=== PATIENT | female | born 2000 | race American Indian/Alaskan Native ===

== ENCOUNTER 2020-01-07 01:26 | Outpatient (CLI) | payer MEDICAID ==
[2020-01-07 01:48] VITALS: BP 132/62
== END 2020-01-07 02:32 | disposition home or self-care (01) ==
LOC: TRG 01:26 → APU 01:32 → TRG 02:32
PROVIDERS: ATTEND Obstetrics & Gynecology
DX: O47.03 False labor before 37 completed weeks of gestation, third trimester (principal); Z3A.36 36 weeks gestation of pregnancy
CPT/HCPCS: 59025

== ENCOUNTER 2020-01-13 19:48 | Outpatient (CLI) | payer MEDICAID ==
[2020-01-13 20:04] VITALS: BP 122/65
== END 2020-01-13 21:17 | disposition home or self-care (01) ==
LOC: TRG 19:48 → APU 19:50 → TRG 21:17
PROVIDERS: ATTEND Obstetrics & Gynecology
DX: O47.03 False labor before 37 completed weeks of gestation, third trimester (principal); Z3A.36 36 weeks gestation of pregnancy
CPT/HCPCS: 59025

== ENCOUNTER 2020-01-24 15:00 | Outpatient (CLI) | payer MEDICAID ==
[2020-01-24] MEDS ORDERED: LACTATED RINGERS 1,000 ML IV SCH (18:00)
[2020-01-24 19:35] VITALS: BP 125/72
== END 2020-01-24 21:18 | disposition home or self-care (01) ==
LOC: APU 15:00 → TRG 15:00
PROVIDERS: ATTEND Obstetrics & Gynecology
DX: O62.9 Abnormality of forces of labor, unspecified (principal); Z3A.38 38 weeks gestation of pregnancy
CPT/HCPCS: 59025; 96360; 96361; J7120

== ENCOUNTER 2020-01-26 02:54 | Outpatient (CLI) | payer MEDICAID ==
[2020-01-26 03:48] VITALS: BP 134/78
== END 2020-01-26 04:02 | disposition home or self-care (01) ==
LOC: TRG 02:54 → APU 03:03 → TRG 04:02
PROVIDERS: ATTEND Obstetrics & Gynecology
DX: Z34.83 Encounter for supervision of other normal pregnancy, third trimester (principal); Z3A.38 38 weeks gestation of pregnancy
CPT/HCPCS: 59025

== ENCOUNTER 2020-01-28 22:48 | Outpatient (CLI) | payer MEDICAID ==
[2020-01-28 23:02] VITALS: BP 139/68
== END 2020-01-28 23:24 | disposition home or self-care (01) ==
LOC: TRG 22:48 → APU 22:55 → TRG 23:24
PROVIDERS: ATTEND Obstetrics & Gynecology
DX: Z34.83 Encounter for supervision of other normal pregnancy, third trimester (principal); Z3A.39 39 weeks gestation of pregnancy
CPT/HCPCS: 59025

== ENCOUNTER 2020-01-30 10:09 | Inpatient (IN) | payer MEDICAID ==
[2020-01-30] MEDS ORDERED: LIDOCAINE (2%) 20 MG/1 ML VIAL 20 ML MDV INFILTRATI NR (10:27)
[2020-01-30] MEDS ORDERED: ePHEDrine SULFATE 50 MG/1 ML INJ IV PRN ×2 (10:27→14:00)
[2020-01-30] MEDS ORDERED: TERBUTALINE 1 MG/1 ML INJ SUB-Q PRN (10:27)
[2020-01-30] MEDS ORDERED: fentaNYL 100 MCG/2 ML INJ IV PRN (11:00)
[2020-01-30] MEDS ORDERED: ONDANSETRON 4 MG/2 ML INJ IV PRN (11:00)
[2020-01-30] MEDS ORDERED: OXYTOCIN DRIP 30 UNITS/500 ML BAG IV SCH ×2 (11:00)
[2020-01-30] MEDS ORDERED: BUTORPHANOL 2 MG/1 ML INJ IV PRN (11:00)
[2020-01-30] MEDS: LACTATED RINGERS 1,000 ML IV SCH ×3 (11:10→17:29)
[2020-01-30 11:18] LABS: Hematocrit 26.4 % (30.3-42.9); Hemoglobin 8.5 gm/dl (10.1-14.3); Mean Corpuscular HGB Conc 32 % (30-34); Mean Corpuscular Volume 73 fl (79-97); Platelet Count 192 K/mm3 (140-440); Red Blood Count 3.64 M/mm3 (3.65-5.03); Red Cell Distribution Width 19.5 % (13.2-15.2)
--- NOTE | 2020-01-30 13:59 | History and Physical Report ---
History of Present Illness Date of examination: 01/30/20 Date of admission: 01/30/20 10:29 Chief complaint: I am having contractions History of present illness: Ms. Lakhani is a 19-year-old 1 para 0 with EDC 02/04/20. She has had an uncomplicated course. She is GBS positive. She entered care and a pressure monitor. Past History Past Medical History: no pertinent history Past Surgical History: no surgical history Family/Genetic History: none Social history: single - Obstetrical History Expected Date of Delivery: 02/04/20 Actual Gestation: 39 Week(s) 2 Day(s) : 1 Para: 0 Number of Living Children: 0 Medications and Allergies Allergies Allergy/AdvReac Type Severity Reaction Status Date / Time No Known Allergies Allergy Verified 01/24/20 15:14 Active Meds: Active Medications Butorphanol Tartrate (Stadol) 2 mg IV Q2H PRN PRN Reason: Pain , Severe (7-10) Ephedrine Sulfate (Ephedrine Sulfate) 10 mg IV Q2M PRN PRN Reason: Hypotension Fentanyl (Sublimaze) 100 mcg IV Q2H PRN PRN Reason: Pain,Severe (7-10) LABOR PAIN Last Admin: 01/30/20 11:25 Dose: 100 mcg Documented by: Oxytocin/Sodium Chloride (Pitocin/Ns 30 Unit/500ml) 30 units in 500 mls @ 2 mls/hr IV TITR LUSI ANGEL; Protocol Last Titration: 01/30/20 12:50 Dose: 4 mls/hr, 4 mls/hr Documented by: Lactated Ringer's (Lactated Ringers) 1,000 mls @ 125 mls/hr IV DIRECT LUIS ANGEL Last Admin: 01/30/20 13:02 Dose: 1,200 mls/hr Documented by: Mineral Oil (Mineral Oil) 30 ml PO QHS PRN PRN Reason: Constipation Ondansetron HCl (Zofran) 4 mg IV Q4H PRN PRN Reason: Nausea And Vomiting Last Admin: 01/30/20 11:11 Dose: 4 mg Documented by: Terbutaline Sulfate (Brethine) 0.25 mg SUB-Q ONCE PRN PRN Reason: Hyperstimulation/Hypertonicity Review of Systems All systems: negative Genitourinary: contractions Rectal Exam: deferred - Vital Signs Vital signs: Vital Signs Pulse BP Pulse Ox 94 H 134/90 100 01/30/20 10:16 01/30/20 10:16 01/30/20 10:16 Temp Pulse Resp BP Pulse Ox 98.1 F 89 20 145/93 98 01/30/20 11:40 01/30/20 13:37 01/30/20 11:40 01/30/20 13:18 01/30/20 13:37 - Physical Exam Breasts: Cardiovascular: Regular rate, Normal S1, Normal S2 Lungs: Positive: Clear to auscultation, Normal air movement Abdomen: Positive: normal appearance, soft, normal bowel sounds. Negative: distention, tenderness Genitourinary (Female): Positive: normal external genitalia, normal perenium Vulva: both: normal Vagina: Positive: normal moisture. Negative: discharge Cervix: Negative: lesion, discharge Uterus: Positive: normal size, normal contour Adnexa: both: normal Anus/Rectum: Positive: normal perianal skin, heme negative. Negative: rectal mass, hemorrhoids Extremities: Deep Tendon Reflex Grade: Normal +2 - Obstetrical Cervical Dilatation: 4 Cervical Effacement Percentage: 100 station: 1 Uterine Contraction Pattern: Irregular Uterine Tone Measurement Phase: Resting Uterine Contraction Intensity: Moderate Results Result Diagrams: 01/30/20 10:50 Abnormal lab results 01/30/20 Range/Units 10:50 RBC 3.64 L (3.65-5.03) M/mm3 Hgb 8.5 L (10.1-14.3) gm/dl Hct 26.4 L (30.3-42.9) % MCV 73 L (79-97) fl MCH 24 L (28-32) pg RDW 19.5 H (13.2-15.2) % All other labs normal. Assessment and Plan IUP at 39.3 week in active labor. Admit for labor. Treat for GBS positive status. Anticipate
[2020-01-30] MEDS ORDERED: NALOXONE 2 MG/2 ML INJ IV PRN (14:00)
[2020-01-30] MEDS ORDERED: AMPICILLIN/NS 2 GM/100 ML 2 GM/100 ML BAG IV SCH (14:00)
[2020-01-30] MEDS ORDERED: fentaNYL-BUPIV 2 MCG/ML-0.125% 200 MCG/100 ML BAG EPIDURAL SCH (14:00)
--- NOTE | 2020-01-30 14:42 | Anesthesia Consultation ---
Anesthesia Consult and Med Hx Date of service: 01/30/20 - Airway Anesthetic Teeth Evaluation: Good ROM Head & Neck: Adequate Mental/Hyoid Distance: Adequate Mallampati Class: Class II Intubation Access Assessment: Good - Pulmonary Exam CTA: Yes - Cardiac Exam Cardiac Exam: RRR - Pre-Operative Health Status ASA Pre-Surgery Classification: ASA2 Proposed Anesthetic Plan: Epidural - Pre-Anesthesia Comment Pre-Anesthesia Comments: excision of cyst - Pulmonary Hx Smoking: No Hx Asthma: No Hx Respiratory Symptoms: No SOB: No COPD: No Home Oxygen Therapy: No Hx Pneumonia: No Hx Sleep Apnea: No - Cardiovascular System Hx Hypertension: No Hx Coronary Artery Disease: No Hx Heart Attack/AMI: No Hx Angina: No Hx Percutaneous Transluminal Coronary Angioplasty (PTCA): No Hx Cardia Arrhythmia: No Hx Pacemaker: No Hx Internal Defibrillator: No Hx Valvular Heart Disease: No Hx Heart Murmur: No Hx Peripheral Vascular Disease: No - Central Nervous System Hx Neuromuscular Disorder: No Hx Seizures: No CVA: No Hx Back Pain: Yes Hx Psychiatric Problems: No - Gastrointestinal Hx Ulcer: No Hx Gastroesophageal Reflux Disease: No - Endocrine Hx Renal Disease: No Hx End Stage Renal Disease: No Hx Cirrhosis: No Hx Liver Disease: No Hx Insulin Dependent Diabetes: No Hx Non-Insulin Dependent Diabetes: No Hx Thyroid Disease: No Hx Hypothyroidism: No Hx Hyperthyroidism: No - Hematic Hx Anemia: No Hx Sickle Cell Disease: No - Other Systems Hx Alcohol Use: No Hx Substance Use: No Hx Cancer: No Hx Obesity: No
--- NOTE | 2020-01-30 14:43 | Progress Note ---
Labor Epidural - Labor Epidural Start Time: 14:05 Stop Time: 14:17 Performed by:: VICKY MENESES Procedure: Patient is requesting combined spinal epidural for labor and pain. H&P, labs were reviewed. All questions and concerns were answered. Informed consent was obtained. Timeout performed. Patient in sitting position on side of bed. Sterile prep and drape was performed. 3 mL 1% lidocaine skin wheal at L [3]-L [4]. 18-gauge Tuohy epidural needle advanced to [id number] using air technique 6cm. 27-gauge spinal needle advanced, positive free-flowing CSF. Spinal dose of [precedex 5mcg]. Epidural catheter advanced to [10] cm. [negative] Aspiration, [negative] test dose. Sterile dressing applied. Patient tolerated procedure well.
[2020-01-30] MEDS ORDERED: AMPICILLIN/NS 1 GM/50 ML 1 GM/50 ML BAG IV SCH (18:00)
[2020-01-30] MEDS ORDERED: MINERAL OIL 30 ML ORAL LIQD PO PRN (22:00)
[2020-01-30] MEDS ORDERED: OXYTOCIN 10 UNIT/1 ML INJ ONE (22:25)
--- NOTE | 2020-01-30 22:39 | Procedure Note ---
OB Delivery Note - Delivery Date of Delivery: 01/30/20 Surgeon: PRISCILLA NICOLE Estimated blood loss: 300cc - Vaginal Delivery presentation: vertex Delivery position: OA Intrapartum events: none Delivery augmentation: rupture of membranes, pitocin Delivery monitor: external FHT, external uterine Route of delivery: Delivery placenta: spontaneous Delivery cord: 3 umbilical vessels Episiotomy: none Delivery laceration: none Anesthesia: epidural Delivery comments: Viable female delivered over intact perineum at 2215 weight 6 pounds 7 ounces, 2931 g. Apgars 8 and 9. Events continuous cry was placed maternal abdomen. Cord was clamped and cut when done pulsating. Placenta was delivered spontaneously and intact with three-vessel cord. No lacerations were noted. Good hemostasis. Patient tolerated procedure well. - Infant A at 1 minute: 8 at 5 minutes: 9 Infant Gender: Female
[2020-01-31] MEDS ORDERED: LANOLIN/ZINC/DIMETHICONE (LANSINOH) 7 GM TP PRN (02:02)
[2020-01-31] MEDS ORDERED: HYDROcodone/ACETAMINOPHEN 5-325 MG TAB PO PRN (02:02)
[2020-01-31] MEDS ORDERED: PROMETHAZINE 25 MG TAB PO PRN (02:02)
[2020-01-31] MEDS ORDERED: WITCH HAZEL/ GLYCERIN PAD TP PRN (02:02)
[2020-01-31] MEDS ORDERED: MAGNESIUM HYDROXIDE (MOM) ORAL LIQD UDC PO PRN (02:02)
[2020-01-31] MEDS ORDERED: ACETAMINOPHEN 325 MG TAB PO PRN (02:02)
[2020-01-31] MEDS ORDERED: diphenhydrAMINE 25 MG CAP PO PRN (02:02)
[2020-01-31] MEDS ORDERED: ONDANSETRON 4 MG/2 ML INJ IV PRN (02:02)
[2020-01-31] MEDS ORDERED: PROMETHAZINE 25 MG RECT SUPP PR PRN (02:02)
[2020-01-31] MEDS: IBUPROFEN 600 MG TAB PO SCH ×3 (05:07→17:35)
--- NOTE | 2020-01-31 05:42 | Post Anesthesia Evaluation ---
- Post Anesthesia Evaluation Patient Participated: Yes Airway Patent: Yes Stable Respiratory Function: Yes Nausea/Vomiting: No Temp > 96.8F: Yes Pain Manageable: Yes Adequeate Hydration: Yes Anesthesia Complications: No Block Receding Appropriately: Yes Patient on Ventilator: No
[2020-01-31] MEDS: DOCUSATE SODIUM 100 MG CAP PO SCH ×2 (09:23→21:48)
[2020-01-31] MEDS: PRENATAL VIT27-FE FUMARATE-FOLIC ACID VIT TAB PO SCH (09:23)
--- NOTE | 2020-01-31 11:16 | Progress Note ---
Assessment and Plan - Patient Problems (1) Vaginal delivery Current Visit: Yes Status: Acute Plan to address problem: Patient doing well Routine care Subjective - Subjective Date of service: 01/31/20 Interval history: Patient currently without complaints. She reports that her lochia is decreasing and her pain is controlled Patient reports: appetite normal, voiding normally, pain well controlled : doing well Objective - Vital Signs Latest vital signs: Vital Signs Temp Pulse Resp BP BP Pulse Ox 01/31/20 08:20 98.4 F 85 18 125/80 100 01/31/20 04:15 98.6 F 69 18 115/79 01/30/20 23:42 90 147/88 01/30/20 23:36 82 100 01/30/20 23:31 95 H 99 01/30/20 23:26 98 H 100 01/30/20 23:21 92 H 99 01/30/20 23:16 98 H 99 01/30/20 23:15 98.9 F 01/30/20 23:13 100 H 99 01/30/20 23:08 104 H 100 01/30/20 23:03 91 H 100 01/30/20 22:58 101 H 99 01/30/20 22:53 100 H 100 01/30/20 22:48 98 H 100 01/30/20 22:43 101 H 100 01/30/20 22:38 108 H 100 01/30/20 22:33 106 H 99 01/30/20 22:28 107 H 100 01/30/20 22:23 106 H 99 01/30/20 22:22 110 H 143/84 01/30/20 22:18 115 H 100 01/30/20 22:13 110 H 99 01/30/20 22:08 106 H 100 01/30/20 22:02 108 H 100 01/30/20 21:57 109 H 99 01/30/20 21:52 112 H 100 01/30/20 21:47 107 H 100 01/30/20 21:45 99.4 F 01/30/20 21:44 116 H 92 01/30/20 21:42 105 H 100 01/30/20 21:37 114 H 100 01/30/20 21:32 114 H 99 01/30/20 21:27 115 H 99 01/30/20 21:23 116 H 130/87 11/25/20 21:22 118 H 100 11/25/20 21:17 111 H 100 11/25/20 21:12 113 H 100 11/25/20 21:07 113 H 99 11/25/20 21:02 113 H 100 11/25/20 20:57 114 H 100 11/25/20 20:52 113 H 99 11/25/20 20:47 115 H 99 11/25/20 20:42 111 H 100 11/25/20 20:37 112 H 99 11/25/20 20:32 114 H 99 11/25/20 20:27 109 H 100 11/25/20 20:22 101 H 129/80 99 11/25/20 20:17 114 H 100 11/25/20 20:12 112 H 100 11/25/20 20:07 114 H 100 11/25/20 20:02 114 H 100 11/25/20 19:57 107 H 100 11/25/20 19:52 108 H 100 11/25/20 19:47 108 H 100 11/25/20 19:42 109 H 100 11/25/20 19:37 106 H 100 11/25/20 19:32 110 H 100 11/25/20 19:27 109 H 100 11/25/20 19:22 100 H 135/87 100 11/25/20 19:17 106 H 100 11/25/20 19:12 107 H 100 11/25/20 19:07 104 H 100 11/25/20 19:04 98.0 F 102 H 18 132/81 132/81 100 11/25/20 19:02 107 H 100 11/25/20 18:57 104 H 100 11/25/20 18:52 107 H 100 11/25/20 18:47 109 H 100 11/25/20 18:42 112 H 100 11/25/20 18:37 109 H 100 11/25/20 18:32 109 H 100 11/25/20 18:27 109 H 100 11/25/20 18:22 109 H 120/66 100 11/25/20 18:17 100 H 100 11/25/20 18:12 98 H 100 11/25/20 18:07 96 H 99 11/25/20 18:02 95 H 99 11/25/20 17:57 99 H 100 11/25/20 17:52 94 H 98 11/25/20 17:47 101 H 99 01/30/20 17:42 93 H 100 01/30/20 17:37 94 H 100 01/30/20 17:32 92 H 100 01/30/20 17:27 94 H 100 01/30/20 17:22 94 H 100 01/30/20 17:18 98.2 F 18 01/30/20 17:17 93 H 100 01/30/20 17:12 92 H 100 01/30/20 17:07 103 H 134/90 100 01/30/20 17:05 102 H 134/75 01/30/20 17:02 102 H 100 01/30/20 16:57 95 H 100 01/30/20 16:52 89 100 01/30/20 16:47 95 H 100 01/30/20 16:42 94 H 100 01/30/20 16:37 89 100 01/30/20 16:32 85 100 01/30/20 16:27 81 100 01/30/20 16:22 85 131/72 100 01/30/20 16:17 84 100 01/30/20 16:12 83 100 01/30/20 16:07 94 H 100 01/30/20 16:06 86 129/71 01/30/20 16:02 85 100 01/30/20 15:57 89 100 01/30/20 15:52 89 100 01/30/20 15:51 88 122/64 01/30/20 15:47 94 H 99 01/30/20 15:42 93 H 99 01/30/20 15:37 92 H 98 01/30/20 15:36 90 121/64 01/30/20 15:32 88 97 01/30/20 15:31 84 128/72 01/30/20 15:27 78 97 01/30/20 15:26 92 H 92 01/30/20 15:25 79 107/55 01/30/20 15:22 79 96 01/30/20 15:20 76 108/54 01/30/20 15:17 81 97 01/30/20 15:12 78 97 01/30/20 15:07 85 98 01/30/20 15:02 86 97 01/30/20 14:58 97.7 F 18 01/30/20 14:57 83 97 01/30/20 14:52 74 98 01/30/20 14:47 75 98 01/30/20 14:43 83 131/66 01/30/20 14:42 82 99 01/30/20 14:41 83 127/62 01/30/20 14:39 85 129/67 01/30/20 14:37 78 131/70 99 01/30/20 14:35 84 131/67 01/30/20 14:33 81 127/60 01/30/20 14:32 80 100 01/30/20 14:31 80 127/60 01/30/20 14:29 86 128/60 01/30/20 14:27 85 136/64 100 01/30/20 14:26 88 137/68 01/30/20 14:23 95 H 127/62 01/30/20 14:22 92 H 100 01/30/20 14:21 93 H 133/63 01/30/20 14:20 87 137/87 01/30/20 14:17 88 138/64 100 01/30/20 14:15 97 H 142/66 01/30/20 14:13 101 H 132/72 01/30/20 14:12 96 H 100 01/30/20 14:11 96 H 137/79 01/30/20 14:10 97 H 139/65 01/30/20 14:08 92 H 152/72 01/30/20 14:07 101 H 100 01/30/20 14:05 93 H 128/63 01/30/20 14:04 96 H 142/65 01/30/20 14:02 109 H 142/85 100 01/30/20 13:59 96 H 135/64 01/30/20 13:57 100 H 137/64 100 01/30/20 13:55 96 H 135/64 01/30/20 13:53 98 H 142/76 01/30/20 13:52 88 100 01/30/20 13:51 93 H 142/72 01/30/20 13:50 99 H 144/85 01/30/20 13:47 100 H 151/69 99 01/30/20 13:46 95 H 150/77 01/30/20 13:42 98 H 100 01/30/20 13:37 89 98 01/30/20 13:32 88 99 01/30/20 13:27 91 H 100 01/30/20 13:22 89 100 01/30/20 13:18 85 145/93 01/30/20 13:17 100 H 98 01/30/20 13:12 89 100 01/30/20 13:07 95 H 99 01/30/20 13:02 85 96 01/30/20 12:57 87 98 01/30/20 12:52 87 98 01/30/20 12:48 82 148/84 01/30/20 12:47 102 H 98 01/30/20 12:43 86 92 01/30/20 12:42 102 H 98 01/30/20 12:37 101 H 98 01/30/20 12:32 84 92 01/30/20 12:27 84 99 01/30/20 12:22 87 91 01/30/20 12:18 88 135/83 01/30/20 12:17 88 94 01/30/20 12:12 90 99 01/30/20 12:07 94 H 97 01/30/20 12:02 92 H 98 01/30/20 11:57 90 97 01/30/20 11:52 94 H 97 01/30/20 11:40 98.1 F 20 01/30/20 11:36 94 H 97 01/30/20 11:31 93 H 96 01/30/20 11:30 87 94 01/30/20 11:26 95 H 94 01/30/20 11:25 98 H 94 01/30/20 11:21 89 100 01/30/20 11:16 92 H 98 Intake and Output 01/30/20 01/31/20 01/31/20 22:59 06:59 14:59 Intake Total 14.6 240 Output Total 500 2200 Balance -485.4 -2200 240 Intake: IV 14.6 PITOCin/NS 30 UNIT/500ML 14.6 30 units In 500 ml @ 2 mls/hr IV TITR LUIS ANGEL Rx#: [id number] Oral 240 Output: Urine 500 2200 Indwelling Catheter 500 Void 2200 Other: Total, Intake Amount 240 Total, Output Amount 500 800 # Voids Void 1 Estimated Blood Loss 300 - Exam Uterus: Present: normal, firm - Labs Labs: Abnormal lab results 01/30/20 Range/Units 10:50 RBC 3.64 L (3.65-5.03) M/mm3 Hgb 8.5 L (10.1-14.3) gm/dl Hct 26.4 L (30.3-42.9) % MCV 73 L (79-97) fl MCH 24 L (28-32) pg RDW 19.5 H (13.2-15.2) %
[2020-01-31 11:17] LABS: Hematocrit 21.3 % (30.3-42.9)
--- NOTE | 2020-01-31 11:17 | Discharge Summary ---
Providers - Providers Date of Admission: 01/30/20 10:29 Date of discharge: 02/01/20 Attending physician: PRISCILLA NICOLE Primary care physician: PRISCILLA NICOLE Hospitalization Reason for admission: active labor Delivery: Discharge diagnosis: IUP at term delivered Hospital course: The patient was admitted in active labor and had a spontaneous vaginal delivery. course was uneventful. Condition at discharge: Good Disposition: DC-01 TO HOME OR SELFCARE - Discharge Diagnoses (1) Vaginal delivery Status: Acute Plan - Discharge Medications Prescriptions: Docusate Sodium [Colace] 100 mg PO BID PRN #60 capsule PRN Reason: Constipation Ferrous Sulfate [Feosol 325 MG tab] 325 mg PO BID #60 tablet Ibuprofen [Motrin] 800 mg PO Q8HR PRN #40 tablet PRN Reason: Pain, Mild (1-3) - Provider Discharge Summary Activity: no sex for 6 weeks, no heavy lifting 4 weeks, no strenuous exercise Diet: routine Instructions: routine Additional instructions: [] Smoking cessation referral if applicable(refer to patient education folder for contact #) [] Refer to [facility] Booklet Call your doctor immediately for: * Fever > 100.5 * Heavy vaginal bleeding ( >1 pad per hour) * Severe persistent headache * Shortness of breath * Reddened, hot, painful area to leg or breast * Schedule visit in 4 weeks - Follow up plan
[2020-01-31] MEDS: FERROUS SULFATE 325 MG TAB PO SCH ×2 (12:29→21:48)
[2020-02-01] MEDS: IBUPROFEN 600 MG TAB PO SCH ×4 (05:23→12:28)
[2020-02-01] MEDS: FERROUS SULFATE 325 MG TAB PO SCH (10:05)
[2020-02-01] MEDS: PRENATAL VIT27-FE FUMARATE-FOLIC ACID VIT TAB PO SCH (10:05)
[2020-02-01] MEDS: DOCUSATE SODIUM 100 MG CAP PO SCH (10:05)
[2020-02-01 14:24] VITALS: BP 122/85
== END 2020-02-01 14:40 | disposition home or self-care (01) | DRG 775 ==
LOC: TRG 10:09 → APU 10:10 → TRG 10:29 → APU 10:29 → LD 10:30 → OB 01-31 00:34
PROVIDERS: ADMIT Obstetrics & Gynecology; ATTEND Obstetrics & Gynecology
PROC: 10E0XZZ Delivery of Products of Conception, External Approach (ICD-10-PCS; principal; 2020-01-30)
PROC: 3E0R3BZ Introduction of Anesthetic Agent into Spinal Canal, Percutaneous Approach (ICD-10-PCS; 2020-01-30)
PROC: 00HU33Z Insertion of Infusion Device into Spinal Canal, Percutaneous Approach (ICD-10-PCS; 2020-01-30)
DX: O99.824 Streptococcus B carrier state complicating childbirth (principal); Z20.828 Contact with and (suspected) exposure to other viral communicable diseases; Z37.0 Single live birth; Z3A.39 39 weeks gestation of pregnancy
CPT/HCPCS: 36415; 85014; 85018; 85027; 86592; 86850; 86900; 86901; 96372; G0378; J0290; J2405; J2590; J3010; J7120; U0003